=== PATIENT | female | born 1995 | race Caucasian/White ===

== ENCOUNTER 2016-08-16 16:13 | Outpatient (CLI) | payer OTHER | END 2016-08-16 18:47 | disposition home or self-care (01) | LOC: GENOP 16:13 | DX: O42.92 Full-term premature rupture of membranes, unspecified as to length of time between rupture and onset of labor (principal); O36.8130 Decreased fetal movements, third trimester, not applicable or unspecified; Z3A.38 38 weeks gestation of pregnancy | CPT/HCPCS: 59025; 81001; 83518 ==

== ENCOUNTER 2016-08-18 14:46 | Outpatient (CLI) | payer OTHER | END 2016-08-18 16:22 | disposition home or self-care (01) | LOC: GENOP 14:46 | DX: O42.92 Full-term premature rupture of membranes, unspecified as to length of time between rupture and onset of labor (principal); O26.893 Other specified pregnancy related conditions, third trimester; R10.9 Unspecified abdominal pain; Z3A.38 38 weeks gestation of pregnancy | CPT/HCPCS: 81001; 83518; G0463 ==

== ENCOUNTER 2016-08-22 11:08 | Outpatient (CLI) | payer OTHER ==
[2016-08-22 12:03] LABS: HEMOGLOBIN 9.4 gm/dl (12.3-15.3); RED BLOOD COUNT 3.95 M/UL (4.00-5.10); WHITE BLOOD COUNT 8.2 K/UL (4.5-11.0)
== END 2016-08-22 13:18 | disposition home or self-care (01) ==
LOC: GENOP 11:08
PROVIDERS: Obstetrics & Gynecology
DX: Z01.812 Encounter for preprocedural laboratory examination (principal); O34.219 Maternal care for unspecified type scar from previous cesarean delivery; Z3A.00 Weeks of gestation of pregnancy not specified
CPT/HCPCS: 36415; 81001; 85025

== ENCOUNTER 2016-08-23 07:03 | Inpatient (IN) | payer OTHER ==
[~2016-08-23] VITALS: Ht 152.4 cm; Wt 92.1 kg
[2016-08-24 05:00] LABS: HEMOGLOBIN 6.6 gm/dl (12.3-15.3)
[2016-08-25] MEDS ORDERED: NORCO 10-325 T1 EACH PO (12:48)
[2016-08-25] MEDS ORDERED: COLACE 100MG C100 MG PO (12:48)
[2016-08-25] MEDS ORDERED: IBUPROFEN600 MG PO (12:48)
[2016-08-25] MEDS ORDERED: FEROSUL325 MG PO (12:49)
== END 2016-08-25 14:34 | disposition home or self-care (01) | DRG 766 ==
LOC: OB 07:03
PROVIDERS: ADMIT Obstetrics & Gynecology
PROC: 3E0234Z Introduction of Serum, Toxoid and Vaccine into Muscle, Percutaneous Approach (ICD-10-PCS; 2016-08-23)
PROC: 10D00Z1 Extraction of Products of Conception, Low, Open Approach (ICD-10-PCS; principal; 2016-08-23 09:00)
DX: O34.211 Maternal care for low transverse scar from previous cesarean delivery (principal); N85.8 Other specified noninflammatory disorders of uterus; Z3A.39 39 weeks gestation of pregnancy; Z37.0 Single live birth; O69.81X0 Labor and delivery complicated by cord around neck, without compression, not applicable or unspecified; Z23 Encounter for immunization
CPT/HCPCS: 36415; 81001; 82800; 85014; 85018; 85025; 90715; C9113; J0690; J1885; J2274; J2405; J2550; J2590; J2765; J7050; J7120